=== PATIENT | female | born 1990 | race Caucasian/White ===

== ENCOUNTER 2016-10-14 15:07 | Outpatient (CLI) | payer OTHER ==
[~2016-10-14] VITALS: Ht 161.3 cm; Wt 50.5 kg
[2016-10-14 15:23] VITALS: BP 99/67; PULSE 105; RESP 16; Ht 161.3 cm; Wt 50.5 kg
--- NOTE | 2016-10-14 15:49 | PN ---
Date/Time of Note Date/Time of Note DATE: 10/14/16 TIME: 15:46 Outpatient Progress Note Chief Complaint Palpitation HPI Palpitations/patient was recently admitted with a palpitation, patient had according notes supraventricular tachycardia and flutter, patient has stopped medication, Patient has palpitation especially when she is lying down, last for 10-15 seconds, happened quite a few times, 5 6 times a last few days, no dizziness, no lightheadedness, feel generalized weakness and tiredness, no syncope, no seizure, no dizziness, no lightheadedness, acute onset, and is abruptly, at present heart rate is 74, Review of Systems Const: No Fever, no chills, no Wt. loss, no Fatigue, normal appetite, no diaphoresis. Eyes: No pain, no discharge, no redness, no visual change, no foreign body. ENT: No pain, no bleeding, no congestion, no sore throat, no dysphagia, no discharge or rhinitis. Lymph: No adenopathy, no tender nodes, no lymphedema. Resp: No SOB, no cough, no sputum, no wheezing, no chest pain. CV: No chest pain, few times palpitaions, no RAI, no PND, no edema. GI: Normal appetite, no pain, no nausea, no vomiting, no diarrhea, no blood, no constipation. : No frequency, no urgency, no dysuria, no hematuria, no flank pain, no discharge, no bleeding. Musc: No bone/joint pain, no back pain, no neck pain, no knee pain, no restricted ROM. Skin: No rash, no skin lesions, no erythema, no laceration, no bruising, no pruritus. Neuro: No OCHOA, no dizziness, no syncope, no seizure, no focal-weakness. Endo: No polyuria, no polydypsia, no dry-skin, no temp-intolerance. Psych: No hallucinations, no depression, no anxiety, no suicidal ideation. Ext: No edema, no pain, no ulcer, no weakness. Physical Exam Vital Signs Date Time Temp Pulse Resp B/P Pulse Ox O2 Delivery O2 Flow Rate FiO2 10/14/16 15:23 98.8 105 16 99/67 98 Room Air General Appearance: A 25 year-old female who appears well-developed, well- nourished, in no acute distress. HEENT: Head normocephalic, atraumatic. Pupils equal, round, reactive to light and accommodate. Sclerae are no jaundice. Nasal turbinates pink without erythema or nasal discharge. Mucous membranes pink and moist without lesions. Oropharynx clear without any exudate or discharge. NECK: Supple. Trachea midline, No thyromegaly, No cervical lymphadenopathy, No mass, No carotid bruits, No JVD, Carotid pulses 2+ bilaterally. PULMONARY: Clear to auscultaion bilaterally, No retractions, Chest expansion symmetric bilaterally, no rales, no ronchi, no dulness on percussion. CARDIAC: Normal SI and S2, Regular rate and rythm, no murmur, gallop, or rub. GASTROINTESTINAL: Abdomen is soft, non-tender, Non Rigid, No distention, Positive bowel sounds x4 quadrants, Liver normal. SKIN: Warm, dry, no rash, no bruise, no echmosis. EXTREMITIES: Bilateral lower extremities normal, no edema, no phlabitus, pulse palpable, no contracture. MUSCULOSKELETAL: Spine Normal, Non-tender, Normal range of motion, No swelling, no deformity, no clubbing, or cyanosis, the patient has no edema to bilateral lower extremities, dorsalis pedis pulses palpable bilaterally. NEUROLOGIC: The patient is awake, alert, oriented, responding to yes/no questions appropriately, moving all extremities, cranial nerve intact, normal strenght, normal power, normal coordination, normal gait. Allergies Coded Allergies: No Known Drug Allergies (Verified Allergy, Unknown, 10/14/16) PMH No smoking no drinking, Patient has allergy to penicillin, by rash Social Hx No smoking no drinking, no drugs, Family Hx Noncontributory Assessment/Plan Impression Palpitations/SVT Plan Patient at present has 3 episodes of palpitation, heart rate was up to 120, according to the patient and lasted for 10-15 seconds, Patient has stopped taking metoprolol, Patient encouraged to increase activity slowly, patient thyroid function has been normal, has been checked multiple times, Patient encouraged to follow with the primary care physician, and follow with the cardiology, REINALDO BARON MD Oct 14, 2016 15:49
== END 2016-10-14 16:25 | disposition home or self-care (01) ==
LOC: DCC 15:07
PROVIDERS: ATTEND Internal Medicine
DX: R00.2 Palpitations (principal); I47.1 Supraventricular tachycardia

== ENCOUNTER 2016-10-28 13:48 | Outpatient (CLI) | payer OTHER ==
[~2016-10-28] VITALS: Ht 161.3 cm; Wt 50.5 kg
[2016-10-28 13:59] VITALS: Ht 161.3 cm; Wt 50.5 kg
[2016-10-28 14:00] VITALS: BP 90/58; PULSE 56; RESP 16
--- NOTE | 2016-10-28 14:52 | PN ---
Date/Time of Note Date/Time of Note DATE: 10/28/16 TIME: 14:48 Outpatient Progress Note Chief Complaint SVT/palpitation HPI SVT/patient had supraventricular tachycardia, patient was recently hospitalized , after the discharge patient had few small episode, for last 2 weeks only couple of episodes of palpitation, but no supraventricular tachycardia, patient had palpitation lasting for less than 5 seconds, Review of Systems Const: No Fever, no chills, no Wt. loss, no Fatigue, normal appetite, no diaphoresis. Eyes: No pain, no discharge, no redness, no visual change, no foreign body. ENT: No pain, no bleeding, no congestion, no sore throat, no dysphagia, no discharge or rhinitis. Lymph: No adenopathy, no tender nodes, no lymphedema. Resp: No SOB, no cough, no sputum, no wheezing, no chest pain. CV: No chest pain, 2 times palpitaions lasting for less than 5 seconds, no RAI, no PND, no edema. GI: Normal appetite, no pain, no nausea, no vomiting, no diarrhea, no blood, no constipation. : No frequency, no urgency, no dysuria, no hematuria, no flank pain, no discharge, no bleeding. Musc: No bone/joint pain, no back pain, no neck pain, no knee pain, no restricted ROM. Skin: No rash, no skin lesions, no erythema, no laceration, no bruising, no pruritus. Neuro: No OCHOA, no dizziness, no syncope, no seizure, no focal-weakness. Endo: No polyuria, no polydypsia, no dry-skin, no temp-intolerance. Psych: No hallucinations, no depression, no anxiety, no suicidal ideation. Ext: No edema, no pain, no ulcer, no weakness. Physical Exam Vital Signs Date Time Temp Pulse Resp B/P Pulse Ox O2 Delivery O2 Flow Rate FiO2 10/28/16 14:00 98.3 56 16 90/58 Room Air General Appearance: A 25 year-old female who appears well-developed, well- nourished, in no acute distress. HEENT: Head normocephalic, atraumatic. Pupils equal, round, reactive to light and accommodate. Sclerae are no jaundice. Nasal turbinates pink without erythema or nasal discharge. Mucous membranes pink and moist without lesions. Oropharynx clear without any exudate or discharge. NECK: Supple. Trachea midline, No thyromegaly, No cervical lymphadenopathy, No mass, No carotid bruits, No JVD, Carotid pulses 2+ bilaterally. PULMONARY: Clear to auscultaion bilaterally, No retractions, Chest expansion symmetric bilaterally, no rales, no ronchi, no dulness on percussion. CARDIAC: Normal SI and S2, Regular rate and rythm, no murmur, gallop, or rub. GASTROINTESTINAL: Abdomen is soft, non-tender, Non Rigid, No distention, Positive bowel sounds x4 quadrants, Liver normal. SKIN: Warm, dry, no rash, no bruise, no echmosis. EXTREMITIES: Bilateral lower extremities normal, no edema, no phlabitus, pulse palpable, no contracture. MUSCULOSKELETAL: Spine Normal, Non-tender, Normal range of motion, No swelling, no deformity, no clubbing, or cyanosis, the patient has no edema to bilateral lower extremities, dorsalis pedis pulses palpable bilaterally. NEUROLOGIC: The patient is awake, alert, oriented, responding to yes/no questions appropriately, moving all extremities, cranial nerve intact, normal strenght, normal power, normal coordination, normal gait. Allergies Coded Allergies: No Known Drug Allergies (Verified Allergy, Unknown, 10/14/16) PMH No change Social Hx No change Family Hx No change Assessment/Plan Impression SVT resolved Palpitation Plan Patient did not have any supraventricular tachycardia for last few weeks, occasional palpitation, last for less than few seconds, and last 2 weeks 2 times , no dizziness, no lightheadedness, no syncope, not any other symptom, Occasional patient has heartburn, usually retrosternal, advised to take Protonix or Zantac [id number], if it does not get better or get worse check with the primary care physician, Patient encouraged to follow with the primary care physician, REINALDO BARON MD Oct 28, 2016 14:52
== END 2016-10-28 16:36 | disposition home or self-care (01) ==
LOC: DCC 13:48
PROVIDERS: ATTEND Internal Medicine
DX: I47.1 Supraventricular tachycardia (principal); R00.2 Palpitations